=== PATIENT | female | born 1980 | race Caucasian/White ===

== ENCOUNTER 2018-08-28 18:43 | Emergency (ER) | payer SELFPAY ==
[~2018-08-28] VITALS: Ht 177.8 cm; Wt 90.7 kg
--- NOTE | 2018-08-28 18:43 | NUR ---
I0 PLACE BY EMS
--- NOTE | 2018-08-28 18:47 | NUR ---
DR CONTRERAS TO ROOM TO INTUBATE 1847 ETOMIDATE 20MG IV 1848 SUCCINYCHOLINE 100MG IV [address] CONTRERAS 7.5 23 AT TEETH WITH GOOD COLOR CHANGE. 185 FENTANYL 100MCG IV 185 PLACED IN VENT BY RT. 185 VERSED 5MG GIVEN 500MG NS GOING WIDE OPEN 185 DIPAVAN STARTED AT 40MCG HR.
[2018-08-28] MEDS ORDERED: MIDAZOLAM 5 MG/5 ML (VERSED) VIAL INJ ONE (18:48)
[2018-08-28] MEDS ORDERED: SUCCINYLCHOLINE INJ 100 MG/5 ML SYR INJ ONE (18:48)
[2018-08-28] MEDS ORDERED: ETOMIDATE IV SOLN 20 MG/10 ML VIAL IV ONE (18:48)
[2018-08-28] MEDS ORDERED: fentaNYL INJECTION 100 MCG/2 ML AMP INJ ONE (18:48)
[2018-08-28] MEDS ORDERED: PROPOFOL DRIP (ICU) 100 ML IV ONE (18:50)
--- NOTE | 2018-08-28 19:08 | NUR ---
[address] IN R SUBCLAVIAN BY MEDICAL STUDENT YOUSUF WITH ASSISTED BY DR CONTRERAS. Addendum: 08/28/18 at [address] R NECK
--- NOTE | 2018-08-28 19:16 | NUR ---
MONITOR SR HR 71 SA02 100% B/P 101/71
--- NOTE | 2018-08-28 19:18 | NUR ---
UNABLE TO OBTAIN PMH DUE TO PATIENT CONDITION FAMILY NOT HERE.
--- NOTE | 2018-08-28 19:21 | NUR ---
vent down to 31% per rt
--- NOTE | 2018-08-28 19:30 | NUR ---
CAMP PLACED BY JARED KUHN
--- NOTE | 2018-08-28 19:34 | NUR ---
PCXR DONE FOR CENTRAL LINE PLACEMENT
[2018-08-28 19:39] LABS: BILIRUBIN,URINE NEGATIVE (NEGATIVE); CLARITY,URINE SLIGHTLY CLOUDY; COLOR,URINE YELLOW; GLUCOSE, URINE (UA) NEGATIVE (NEGATIVE); KETONES,URINE NEGATIVE (NEGATIVE); LEUKOCYTE ESTERASE ,URINE NEGATIVE (NEGATIVE); NITRITE,URINE NEGATIVE (NEGATIVE); PH,URINE 6 (5-9); PROTEIN,URINE NEGATIVE (NEGATIVE); UROBILINOGEN,URINE NORMAL (NORMAL)
--- NOTE | 2018-08-28 19:42 | ED Psychosocial ---
General Chief Complaint: Overdose Stated Complaint: OD Nursing Triage Note: [facility] WAS FOUND BY UNRESPONSIVE AND MAY OF TAKEN [place] AMT OF PILLS CLONZEPAM AND SEROQUEL BOTTLE EMPTY.LAST TIME SEEN HER WAS THIS AM Source: patient, EMS Exam Limitations: clinical condition (ASYA CONTRERAS MD) Source: patient (PT IS OBTUNDED ON ARRIVAL), EMS, spouse (SUNDAY MCFADDEN DO) History of Present Illness Date Seen by Provider: Aug 28, 2018 (ASYA CONTRERAS MD) Date Seen by Provider: Aug 28, 2018 Time Seen by Provider: 18:38 Initial Comments PT ARRIVES [facility]IA [facility] FROM [place] I/O LINE IN RIGHT ANTERIOR TIBIA PLACED BY EMS PT WITH APPARENT OVERDOSE--PT WAS FOUND UNRESPONSIVE IN THE HOUSE BY HER AT 1700 TONIGHT, WITH 5 EMPTY BOTTLES OF PILLS--3 EMPTY BOTTLES OF CLONAZEPAM 0.5 MG AND 2 EMPTY BOTTLES OF SEROQUEL --ONE OF 100 MG AND ONE OF 50 MG TABLETS EMS GAVE ROMAZICON 0.5 MG WITHOUT ANY IMPROVEMENT. STATES HE LAST SAW HER BEFORE HE WENT TO WORK EARLY THIS AM STATES HE DID TALK TO HER ON THE PHONE AROUND 11:00 AM, AND THEN 'S NEPHEW WENT TO CHECK ON HER AROUND NOON AND COULD NOT GET INTO THE HOUSE, IT WAS COMPLETELY LOCKED UP, WHICH IS UNUSUAL, PER REPORTS THAT WHEN HE GOT HOME AROUND 1700, HE FOUND HER UNCONSCIOUS NO APPARENT TRAUMA REPORTS THAT PT HAS HAD 4 PSYCH ADMITS IN THE LAST 7 MONTHS--ALL AT [facility] IN [place], [place] HE REPORTS THAT SHE HAS NOT ATTEMPTED SUICIDE IN THE PAST, BUT AT LEAST ONE OF HER RECENT PSYCH ADMITS WAS FOR SUICIDAL IDEATIONS, THE OTHERS WERE REPORTEDLY FOR PT BECOMING "PSYCHOTIC--FROM THE MEDICINES THEY HAD HER ON" HE STATES THAT PT HAS HAD SEVERAL MEDICATION CHANGES RECENTLY, AND HAD BEEN TO MULTIPLE DIFFERENT PROVIDERS, AND MOST RECENTLY SWITCHED TO [facility] AND THEN [facility] STATES HE WAS UNAWARE THAT PT WAS SUICIDAL TODAY--HE STATES "SHE'S ALWAYS HAPPY ALL THE TIME" PILLS BOTTLES BROUGHT WITH PT: -CLONAZEPAM 0.5 MG #45 FILLED ON 06/22/18, WRITTEN BY JI CROCKETT--FILLED AT [facility]--BOTTLE EMPTY -CLONAZEPAM 0.5 MG #30 FILLED ON 07/27/18, WRITTEN BY LIANE REDDY--FILLED AT [facility]--BOTTLE EMPTY -CLONAZEPAM 0.5 MG #30 FILLED ON 08/17/18, WRITTEN BY BARRY--FILLED AT [facility]--BOTTLE EMPTY -QUETIAPINE/SEROQUEL 25 MG #30 FILLED ON 07/27/18, WRITTEN BY BARRY, FILLED AT [facility]--#23 LEFT IN BOTTLE -QUETIAPINE 50 MG #150 FILLED ON 07/27/18, WRITTEN BY BARRY, FILLED AT [facility]--BOTTLE EMPTY -QUETIAPINE 100 MG #45 FILLED ON 08/17/18, WRITTEN BY BARRY, FILLED AT [facility]--BOTTLE EMPTY -CITALOPRAM/CELEXA 10 MG #30 FILLED ON 07/27/18, WRITTEN BY BARRY, FILLED AT [facility]--#9 LEFT IN BOTTLE -RISPERIDONE 1 MG #20 FILLED ON 07/27/18, WRITTEN BY BARRY, FILLED AT [facility] --#8 LEFT IN BOTTLE -MIRTAZAPINE 7.5 MG #30 FILLED ON 07/27/18, WRITTEN BY BARRY, FILLED AT [facility]--#9 LEFT IN BOTTLE PT HAS NOT HAD ANY PRIOR VISITS TO THIS FACILITY. PCP: [facility], [facility] (SUNDAY MCFADDEN DO) Allergies and Home Medications Allergies Coded Allergies: No Allergy Information Available (Unverified , 08/28/18) Patient Home Medication List Home Medication List Reviewed: Yes (SUNDAY MCFADDEN DO) Review of Systems Constitutional: other (UNABLE TO OBTAIN) (SUNDAY MCFADDEN DO) Past Smtjqlz-Mqtrxx-Izrksr Hx Patient Social History Alcohol Use: Denies Use Recreational Drug Use: No Smoking Status: Unknown if Ever Smoked Recent Foreign Travel: No Contact w/Someone Who Travel: No Recent Infectious Disease Expo: No (ASYA CONTRERAS MD) Past Medical History Psychosocial: Yes (SUICIDAL IDEATIONS; PSYCHOSIS) Depression (SUNDAY MCFADDEN DO) Physical Exam Vital Signs - First Documented 08/28/18 08/28/18 18:43 20:37 Temp 91.0 Pulse 112 Resp 16 B/P (MAP) 101/74 (83) Pulse Ox 98 O2 Delivery Non Rebreather O2 Flow Rate 10.00 (SUNDAY MCFADDEN DO) Capillary Refill : Less Than 3 Seconds (ASYA CONTRERAS MD) Height, Weight, BMI Height: 5'10.00" Weight: 200lbs. oz. 90.422966jk; BMI Method:Estimated (ASYA CNOTRERAS MD) General Appearance: severe distress, obese, other (PT IS OBTUNDED ON ARRIVAL, ONLY OCCASIONA, MINIMAL MOANING WITH PAINFUL STIMULI. NO EYE OPENING OR SPONTANEOUS MOVEMENTS. NO GROSS EXTERNAL EVIDENCE OF TRAUMA. ) Respiratory: other (RESPIRATIONS SOMEWHAT SHALLOW) Cardiovascular: regular rate, rhythm Gastrointestinal: soft Extremities: no pedal edema Neurologic/Psychiatric: other (OBTUNDED--GCS OF 6 OR LESS--NO EYE OPENING, ONLY OCCASIONALLY MOANS A LITTLE, NO ACTUAL MOTOR MOVEMENTS TO PAIN BUT MOANS WITH PAIN. ) Skin: pallor (SUNDAY MCFADDEN DO) Procedures/Interventions Lumen: triple Central Line Procedure: betadine prep, sterile drapes applied, sterile dressing applied Position: internal jugular (R) Anesthesia: Lidocaine Volume Anesthetic (ccs): 3 Complications: none Post Position: sutured, good blood return, position confirmed w/ CXR Central line placed an emergent condition for need for medication administration frequent blood draw. Patient unresponsive due to overdose. Place via ultrasound guidance to the right IJ times one stick with no complications. Good flash and flush. Post chest x-ray shows line in good position (ASYA CONTRERAS MD) Date of ETT Placement: Aug 28, 2018 Time of ETT Placement: 1856 Tube Size: 7.50 Medications: Etomidate, Succinylcholine Positive End Tide CO2: Yes Breath Sounds after Intubation: bilateral-equal Intubation Complications: no complications Post Intubation Xray: Yes tube in good position Placed on vent without difficulty. (ASYA CONTRERAS MD) Progress/Results/Core Measures Results/Orders Lab Results Laboratory Tests Test 08/28/18 18:51 08/28/18 19:22 08/28/18 19:57 Range/Units Blood Gas Puncture Site RIGHT RADIAL Blood Gas Patient Temperature 91.6 Arterial Blood pH 7.44 H 7.37-7.43 Arterial Blood Partial Pressure CO2 32 L 35-45 MMHG Arterial Blood Partial Pressure O2 80 79-93 MMHG Arterial Blood HCO3 23 23-27 MMOL/L Arterial Blood Total CO2 24.2 21.0-31.0 MMOL/L Arterial Blood Oxygen Saturation 99 94-100 % Arterial Blood Base Excess -1.3 -2.5-2.5 MMOL/L Reid Test POSITIVE Blood Gas Ventilator Setting YES Blood Gas Inspired Oxygen 35% Urine Color YELLOW Urine Clarity SLIGHTLY CLOUDY Urine pH 6 5-9 Urine Specific [place] 1.010 L 1.016-1.022 Urine Protein NEGATIVE NEGATIVE Urine Glucose (UA) NEGATIVE NEGATIVE Urine Ketones NEGATIVE NEGATIVE Urine Nitrite NEGATIVE NEGATIVE Urine Bilirubin NEGATIVE NEGATIVE Urine Urobilinogen NORMAL NORMAL MG/DL Urine Leukocyte Esterase NEGATIVE NEGATIVE Urine RBC (Auto) 3+ H NEGATIVE Urine RBC 10-25 H /HPF Urine WBC RARE /HPF Urine Squamous Epithelial Cells 5-10 /HPF Urine Crystals NONE /LPF Urine Bacteria NEGATIVE /HPF Urine Casts NONE /LPF Urine Mucus NEGATIVE /LPF Urine Culture Indicated NO Urine Opiates Screen NEGATIVE NEGATIVE Urine Oxycodone Screen NEGATIVE NEGATIVE Urine Methadone Screen NEGATIVE NEGATIVE Urine Propoxyphene Screen NEGATIVE NEGATIVE Urine Barbiturates Screen NEGATIVE NEGATIVE Ur Tricyclic Antidepressants Screen POSITIVE H NEGATIVE Urine Phencyclidine Screen NEGATIVE NEGATIVE Urine Amphetamines Screen NEGATIVE NEGATIVE Urine Methamphetamines Screen NEGATIVE NEGATIVE Urine Benzodiazepines Screen NEGATIVE NEGATIVE Urine Cocaine Screen NEGATIVE NEGATIVE Urine Cannabinoids Screen NEGATIVE NEGATIVE White Blood Count 6.6 4.3-11.0 10^3/uL Red Blood Count 3.88 L 4.35-5.85 10^6/uL Hemoglobin 12.2 11.5-16.0 G/DL Hematocrit 35 35-52 % Mean Corpuscular Volume 91 80-99 FL Mean Corpuscular Hemoglobin 31 25-34 PG Mean Corpuscular Hemoglobin Concent 35 32-36 G/DL Red Cell Distribution Width 14.2 10.0-14.5 % Platelet Count 201 130-400 10^3/uL Mean Platelet Volume 10.0 7.4-10.4 FL Neutrophils (%) (Auto) 69 42-75 % Lymphocytes (%) (Auto) 23 12-44 % Monocytes (%) (Auto) 6 0-12 % Eosinophils (%) (Auto) 2 0-10 % Basophils (%) (Auto) 1 0-10 % Neutrophils # (Auto) 4.5 1.8-7.8 X 10^3 Lymphocytes # (Auto) 1.5 1.0-4.0 X 10^3 Monocytes # (Auto) 0.4 0.0-1.0 X 10^3 Eosinophils # (Auto) 0.2 0.0-0.3 10^3/uL Basophils # (Auto) 0.0 0.0-0.1 10^3/uL Prothrombin Time 14.1 12.2-14.7 SEC INR Comment 1.1 0.8-1.4 Activated Partial Thromboplast Time 31 24-35 SEC Sodium Level 139 135-145 MMOL/L Potassium Level 3.2 L 3.6-5.0 MMOL/L Chloride Level 109 H 98-107 MMOL/L Carbon Dioxide Level 20 L 21-32 MMOL/L Anion Gap 10 5-14 MMOL/L Blood Urea Nitrogen 8 7-18 MG/DL Creatinine 0.72 0.60-1.30 MG/DL Estimat Glomerular Filtration Rate > 60 BUN/Creatinine Ratio 11 Glucose Level 94 70-105 MG/DL Calcium Level 8.1 L 8.5-10.1 MG/DL Corrected Calcium 8.6 8.5-10.1 MG/DL Magnesium Level 2.1 1.8-2.4 MG/DL Total Bilirubin 0.7 0.1-1.0 MG/DL Aspartate Amino Transf (AST/SGOT) 14 5-34 U/L Alanine Aminotransferase (ALT/SGPT) 11 0-55 U/L Alkaline Phosphatase 87 40-136 U/L Total Creatine Kinase 58 29-168 U/L Creatine Kinase MB 1.1 <6.6 NG/ML Troponin I < 0.028 <0.028 NG/ML B-Type Natriuretic Peptide < 10.0 <100.0 PG/ML Total Protein 5.7 L 6.4-8.2 GM/DL Albumin 3.4 3.2-4.5 GM/DL Amylase Level 41 25-125 U/L TSH [place] Testing 2.92 0.35-4.94 UIU/ML Serum Test, Qualitative NEGATIVE NEGATIVE Acetaminophen Level < 10 L 10-30 UG/ML Serum Alcohol < 10 <10 MG/DL (TOSHIA,SUNDAY K DO) My Orders Orders - TOSHIA,SUNDAY K DO Saline Lock/Iv-Start (08/28/18 18:51) Ekg Tracing (08/28/18 18:51) Catheter(Urinary) Insert & Ass 03,15 (08/28/18 18:51) Ng Tube Insert & Assessment (08/28/18 18:51) O2 (08/28/18 18:51) Monitor-Rhythm Ecg Trace Only (08/28/18 18:51) Acetaminophen (08/28/18 18:51) Alcohol (08/28/18 18:51) Amylase (08/28/18 18:51) Arterial Blood Gas (08/28/18 18:51) BNP (08/28/18 18:51) Cbc With Automated Diff (08/28/18 18:51) Comprehensive Metabolic Panel (08/28/18 18:51) Creatine Kinase (08/28/18 18:51) Creatine Kinase Mb (08/28/18 18:51) Drug Screen Stat (Urine) (08/28/18 18:51) Hcg,Qualitative Serum (08/28/18 18:51) Magnesium (08/28/18 18:51) Protime With Inr (08/28/18 18:51) Partial Thromboplastin Time (08/28/18 18:51) Thyroid Analyzer (08/28/18 18:51) Troponin I (08/28/18 18:51) Ua Culture If Indicated (08/28/18 18:51) Chest 1 View, Ap/Pa Only (08/28/18 18:51) Propofol Drip (Icu) (Diprivan Drip (Icu) (08/28/18 18:50) (SUNDAY MCFADEDN DO) Medications Given in ED Current Medications Medications Dose Ordered Sig/Thi Route Start Time Stop Time Status Last Admin Dose Admin Propofol 100 ml @ ud STK-MED ONCE IV 08/28/18 18:50 08/28/18 18:56 DC 08/28/18 20:37 20.9 MLS/HR (SUNDAY MCFADDEN DO) Vital Signs/I&O 08/28/18 08/28/18 08/28/18 18:43 20:37 21:01 Temp 91.0 91.0 Pulse 112 59 58 Resp 16 14 14 B/P (MAP) 101/74 (83) 109/77 112/72 (85) Pulse Ox 98 100 100 O2 Delivery Non Rebreather O2 Flow Rate 10.00 10.00 (SUNDAY MCFADDEN DO) Blood Pressure Mean: 83 Progress Progress Note : Progress Note Assisted in management of the patient on arrival. Patient obtunded with large overdose. Need for airway protection due to inability to protect her own airway and concern of worsening due to overdose. Intubated without difficulty and placed on vent at settings of tidal volume 450 with rate of 14 and PEEP of 5. Initial O2 set at 50 percent and titrated down with good maintenance of O2 saturations. Central line placed under emergent conditions due to need for medications and frequent blood draws. Patient obtunded. Central line placed without difficulty. OG-tube and Olvera catheter also placed by nursing and post intubation/line placement x-ray shows tubes in good position. Care assumed by Dr. Mcfadden. (ASYA CONTRERAS MD) Progress Note : Progress Note NO DETERIORATION IN PT'S CONDITION DURING ER STAY--VITALS REMAINED STABLE, ALTHOUGH PT'S RECTAL TEMP REMAINED 91 DEGREES DESPITE WARM BLANKETS AND WARM IV FLUIDS. EMS ARRIVED BEFORE ROSAMARIA HUGGER COULD BE APPLIED. PT DID NOT REQUIRE ANY ADDITIONAL SEDATION AFTER INITIAL MEDICATIONS WERE GIVEN AT TIME OF INTUBATION. PT WAS PLACED ON DIPRIVAN DRIP BY DR CONTRERAS AFTER INTUBATION. (SUNDAY MCFADDEN DO) Initial ECG Impression Date: Aug 28, 2018 Initial ECG Impression Time: 19:46 Initial ECG Rate: 64 Initial ECG Rhythm: Normal Sinus Initial ECG Impression: Normal Initial ECG Comparisson: No Previous ECG Available (SUNDAY MCFADDEN DO) Diagnostic Imaging Comments CXR--NO ACUTE PROCESS, LINES AND TUBES IN ADEQUATE POSITIONS, PER RADIOLOGIST REPORT @ 2023 Reviewed: Reviewed by Me (SUNDAY MCFADDEN DO) Critical Care Note Critical Care Total Time (minutes) 60 (SUNDAY MCFADDEN DO) Departure Communication (Admissions) Family Conversation DISCUSSED PT'S CURRENT GRAVE SITUATION, AND NEED FOR TRANSFER TO ANOTHER FACILITY, WE ARE CURRENTLY ON DIVERSION. HE IS AGREEABLE TO CURRENT TREATMENT AND PLAN OF CARE. THERE ARE NO BEDS CURRENTLY AVAILABLE HERE--HOSPITAL IS ON DIVERSION FOR ADMISSIONS 1934--SPOKE WITH [facility] ( 'S PREFERENCE ) 1941--SPOKE WITH DR. JOSEPH, [facility], ACCEPTS PT FOR ADMIT. NO ADDITIONAL RECOMMENDATIONS GIVEN AT THIS TIME. . (SUNDAY MCFADDEN DO) Impression Primary Impression: Intentional overdose of drug in tablet form Additional Impressions: Obtunded Poor venous access Hypothermia Disposition: 02 XFER SHT-TRM HOSP Condition: Stable/Unchanged (BUT SERIOUS) Transfer Transfer Facility: [facility] Method of Transfer: EMS ([facility]) (SUNDAY MCFADDEN DO) ASYA CONTRERAS MD Aug 28, 2018 19:42 SUNDAY MCFADDEN DO Aug 29, 2018 03:34
[2018-08-28 19:47] LABS: WBC,URINE RARE /HPF
[2018-08-28 19:48] LABS: BACTERIA,URINE NEGATIVE /HPF
[2018-08-28 19:53] LABS: AMPHETAMINE SCREEN, URINE NEGATIVE (NEGATIVE); BARBITURATE SCREEN URINE NEGATIVE (NEGATIVE); BENZODIAZEPINES SCREEN URINE NEGATIVE (NEGATIVE); CANNABINOID SCREEN, URINE NEGATIVE (NEGATIVE); COCAINE SCREEN URINE NEGATIVE (NEGATIVE); METHADONE STAT NEGATIVE (NEGATIVE); METHAMPHETAMINE SCREEN URINE S NEGATIVE (NEGATIVE); OPIATE SCREEN URINE NEGATIVE (NEGATIVE); OXYCODONE STAT NEGATIVE (NEGATIVE); PROPOXYPHENE STAT NEGATIVE (NEGATIVE); TRICYCLIC ANTIDEPRESSANTS SCRE POSITIVE (NEGATIVE)
[2018-08-28 19:59] LABS: ABG BASE EXCESS -1.3 MMOL/L (-2.5-2.5); ABG OXYGEN SATURATION 99 % (94-100); ABG PCO2 32 MMHG (35-45); ABG PH 7.44 (7.37-7.43); ABG PO2 80 MMHG (79-93); ABG TCO2 24.2 MMOL/L (21.0-31.0)
--- NOTE | 2018-08-28 19:59 | NUR ---
LAB DRAW FROM CENTRAL LINE
--- NOTE | 2018-08-28 19:59 | NUR ---
REPORT TPO MONA KUHN
--- NOTE | 2018-08-28 20:01 | Diagnostic Imaging Report ---
INDICATION: Intubation and line placement. Time of exam: 7:34 PM Heart size is normal. ET tube has tip in good position above the heather. NG tube passes below the diaphragm. Right IJ line has tip overlying the SVC right atrial junction. The lungs are clear. There is no pneumothorax. IMPRESSION: Lines and catheters, as described. Dictated by: Dictated on workstation # [id number]
[2018-08-28 20:03] LABS: ALLENS TEST POSITIVE; INSPIRED O2 35%; PATIENT TEMP 91.6; VENTILATOR YES
[2018-08-28 20:06] LABS: BASOPHILS % (AUTO) 1 % (0-10); EOSINOPHILS # (AUTO) 0.2 10^3/uL (0.0-0.3); EOSINOPHILS % (AUTO) 2 % (0-10); HEMATOCRIT 35 % (35-52); HEMOGLOBIN 12.2 G/DL (11.5-16.0); LYMPHOCYTES # (AUTO) 1.5 X 10^3 (1.0-4.0); LYMPHOCYTES % (AUTO) 23 % (12-44); MEAN CORPUSCULAR HEMOGLOBIN 31 PG (25-34); MEAN CORPUSCULAR HGB CONC 35 G/DL (32-36); MEAN CORPUSCULAR VOLUME 91 FL (80-99); MONOCYTES # (AUTO) 0.4 X 10^3 (0.0-1.0); MONOCYTES % (AUTO) 6 % (0-12); NEUTROPHILS # (AUTO) 4.5 X 10^3 (1.8-7.8); NEUTROPHILS % (AUTO) 69 % (42-75); PLATELET COUNT 201 10^3/uL (130-400); RED CELL DISTRIBUTION WIDTH 14.2 % (10.0-14.5); WHITE BLOOD COUNT 6.6 10^3/uL (4.3-11.0)
[2018-08-28 20:16] LABS: INR 1.1 (0.8-1.4); PROTHROMBIN TIME PATIENT 14.1 SEC (12.2-14.7)
[2018-08-28 20:30] LABS: ALANINE AMINOTRANSFERASE 11 U/L (0-55); ALKALINE PHOSPHATASE 87 U/L (40-136); AMYLASE 41 U/L (25-125); BILIRUBIN,TOTAL 0.7 MG/DL (0.1-1.0); BUN/CREATININE RATIO 11; CALCIUM 8.1 MG/DL (8.5-10.1); CARBON DIOXIDE 20 MMOL/L (21-32); CHLORIDE 109 MMOL/L (98-107); CREATINE KINASE 58 U/L (29-168); CREATININE SERUM 0.72 MG/DL (0.60-1.30); GFR ESTIMATED > 60; GLUCOSE 94 MG/DL (70-105); MAGNESIUM 2.1 MG/DL (1.8-2.4); POTASSIUM 3.2 MMOL/L (3.6-5.0); SODIUM 139 MMOL/L (135-145); TOTAL PROTEIN 5.7 GM/DL (6.4-8.2)
[2018-08-28 20:31] LABS: ACETAMINOPHEN < 10 UG/ML (10-30)
[2018-08-28 20:51] LABS: CREATINE KINASE MB 1.1 NG/ML (<6.6); TSH (THYROID ANALYZER) 2.92 UIU/ML (0.35-4.94)
[2018-08-28 21:01] VITALS: BP 112/72
[2018-08-28 21:09] LABS: ALBUMIN 3.4 GM/DL (3.2-4.5)
== END 2018-08-28 21:01 | disposition short-term general hospital (02) ==
LOC: ER 18:47
DX: T42.2X2A Poisoning by succinimides and oxazolidinediones, intentional self-harm, initial encounter (principal); T43.592A Poisoning by other antipsychotics and neuroleptics, intentional self-harm, initial encounter; T68.XXXA Hypothermia, initial encounter; F32.9 Major depressive disorder, single episode, unspecified
CPT/HCPCS: 31500; 36415; 36600; 51702; 71045; 80053; 80306; 80320; 80329; 81000; 82150; 82550; 82553; 82805; 83735; 83880; 84443; 84484; 84703; 85025; 85610; 85730; 93005; 93041; 99291

== ENCOUNTER 2018-12-30 01:13 | Emergency (ER) | payer SELFPAY ==
[~2018-12-30] VITALS: Ht 160 cm; Wt 77.1 kg
[2018-12-30 01:35] LABS: HCG,QUALITATIVE URINE NEGATIVE (NEGATIVE)
[2018-12-30 01:41] LABS: BACTERIA,URINE NEGATIVE /HPF; BILIRUBIN,URINE NEGATIVE (NEGATIVE); CLARITY,URINE CLEAR; COLOR,URINE PALE YELLOW; GLUCOSE, URINE (UA) NEGATIVE (NEGATIVE); KETONES,URINE NEGATIVE (NEGATIVE); LEUKOCYTE ESTERASE ,URINE 2+ (NEGATIVE); NITRITE,URINE NEGATIVE (NEGATIVE); PROTEIN,URINE NEGATIVE (NEGATIVE); SQUAMOUS EPITHELIAL CELL,UR 0-2 /HPF; UROBILINOGEN,URINE 0.2 MG/DL (NORMAL)
--- NOTE | 2018-12-30 01:42 | ED GU-Female ---
General Chief Complaint: - Urinary Stated Complaint: BURNING ON URINATION Source: patient History of Present Illness Date Seen by Provider: Dec 30, 2018 Time Seen by Provider: 01:14 Initial Comments 38 yo F presenting to ED with complaints of painful urination since the afternoon. she reports seeing some blood with urination as well. She has a hx of frequent Urinary tract infections as well. She has been drinking a lot of water and cranberry juice to try and flush out her bladder and see if she could clear the infection on her own at home. she was still having pain and burning with urgency and feeling like she can not empty her bladder so she came to the ED tonight. She has no fever or chills. No pain over kidneys. No n/v and no fever or chills. no vaginal bleeding or discharge. Last menstrual period finished last week and was normal for her. she denies having a primary provider to follow up with currently. Allergies and Home Medications Allergies Coded Allergies: No Allergy Information Available (Unverified , 08/28/18) Home Medications Sulfamethoxazole/Trimethoprim 1 Each Tablet, 1 EACH PO BID Prescribed by: TIFFANY HOLM on 12/30/18 0208 Patient Home Medication List Home Medication List Reviewed: Yes Review of Systems Review of Systems Constitutional: No chills, No fever EENTM: no symptoms reported Respiratory: no symptoms reported Gastrointestinal: No nausea, No vomiting Genitourinary: see HPI Musculoskeletal: no symptoms reported Skin: no symptoms reported Psychiatric/Neurological: No Symptoms Reported Past Tcrortz-Xkndxa-Abibjr Hx Past Med/Social Hx: Reviewed Nursing Past Med/Soc Hx Patient Social History Recent Foreign Travel: No Contact w/Someone Who Travel: No Past Medical History Psychosocial: Yes (SUICIDAL IDEATIONS; PSYCHOSIS) Depression Physical Exam Vital Signs Vital Signs - First Documented 12/30/18 01:21 Temp 98.5 Pulse 76 Resp 16 B/P (MAP) 111/63 (79) Pulse Ox 96 O2 Delivery Room Air Capillary Refill : Height, Weight, BMI Height: 5'10.00" Weight: 200lbs. oz. 90.923304vf; BMI Method:Estimated General Appearance: WD/WN, no apparent distress Cardiovascular: normal peripheral pulses, regular rate, rhythm Respiratory: chest non-tender, lungs clear, normal breath sounds Gastrointestinal: normal bowel sounds, non tender, soft Back: normal inspection, no CVA tenderness, no vertebral tenderness Extremities: normal range of motion, non-tender, normal inspection Neurologic/Psychiatric: alert, normal mood/affect, oriented x 3 Skin: normal color, warm/dry Procedures/Interventions Date of ETT Placement: Aug 28, 2018 Time of ETT Placement: 1856 Progress/Results/Core Measures Suspected Sepsis SIRS Temperature: Pulse: Respiratory Rate: Blood Pressure / Mean: Results/Orders Lab Results Laboratory Tests Test 12/30/18 01:23 Range/Units Urine Color PALE YELLOW Urine Clarity CLEAR Urine pH 6.0 5-9 Urine Specific [place] <=1.005 1.016-1.022 Urine Protein NEGATIVE NEGATIVE Urine Glucose (UA) NEGATIVE NEGATIVE Urine Ketones NEGATIVE NEGATIVE Urine Nitrite NEGATIVE NEGATIVE Urine Bilirubin NEGATIVE NEGATIVE Urine Urobilinogen 0.2 NORMAL MG/DL Urine Leukocyte Esterase 2+ H NEGATIVE Urine RBC (Auto) 2+ H NEGATIVE Urine RBC NONE /HPF Urine WBC 10-25 H /HPF Urine Squamous Epithelial Cells 0-2 /HPF Urine Crystals NONE /LPF Urine Bacteria NEGATIVE /HPF Urine Casts NONE /LPF Urine Mucus NONE /LPF Urine Culture Indicated YES Urine Test NEGATIVE NEGATIVE My Orders Orders - TIFFANY HOLM MD Ua Culture If Indicated (12/30/18 01:22) Hcg,Qualitative Urine (12/30/18 01:22) Urine Culture (12/30/18 01:23) Phenazopyridine Tablet (Pyridium Tablet) (12/30/18 02:04) Sulfamethoxazole/Trimet Ds Tab (Bactrim (12/30/18 02:04) Vital Signs/I&O 12/30/18 12/30/18 01:21 02:10 Temp 98.5 98.5 Pulse 76 76 Resp 16 16 B/P (MAP) 111/63 (79) 111/63 (79) Pulse Ox 96 96 O2 Delivery Room Air Room Air Capillary Refill : Progress Note #1: Progress Note check UA and UCG. Based on her symptoms will plan on treating her for a UTI and have her check with clinic for continued symptoms Progress Note #2: Time: 01:54 Progress Note UA shows LE and WBC consistent with UTI. will treat with bactrim DS and pyridium here and discharge on Bactrim DS and OTC AZO as well as continue to push fluids at home Departure Impression Primary Impression: Acute cystitis without hematuria Disposition: 01 HOME, SELF-CARE Condition: Stable Departure-Patient Inst. Decision time for Depature: 02:04 Referrals: NO,LOCAL PHYSICIAN (PCP/Family) Primary Care Physician Patient Instructions: Urinary Tract Infection, Adult (DC) Add. Discharge Instructions: Take all the antibiotics until gone. Follow up with clinic for continued concerns Stay well hydrated All discharge instructions reviewed with patient and/or family. Voiced understanding. Scripts Sulfamethoxazole/Trimethoprim (Bactrim Ds Tablet) 1 Each Tablet 1 EACH PO BID for UTI for 7 Days, #14 TAB 0 Refills Prov: TIFFANY HOLM MD 12/30/18 TIFFANY HOLM MD Dec 30, 2018 01:42
[2018-12-30] MEDS ORDERED: TRIM/SULFAMETH 160/800 (SEPTRA DS) TAB PO STA (02:04)
[2018-12-30] MEDS ORDERED: PHENAZOPYRIDINE 100 MG (PYRIDIUM) TABLET PO STA (02:04)
[2018-12-30] MEDS ORDERED: SULF1TAB35 PO (02:08)
[2018-12-30 02:10] VITALS: BP 111/63
== END 2018-12-30 02:13 | disposition home or self-care (01) ==
LOC: EDUNIT# 01:13 → ER FS 01:16
DX: N30.00 Acute cystitis without hematuria (principal); F32.9 Major depressive disorder, single episode, unspecified
CPT/HCPCS: 81000; 84703; 87077; 87088; 87186; 99283

== ENCOUNTER 2019-08-11 10:55 | Emergency (ER) | payer SELFPAY ==
[~2019-08-11] VITALS: Ht 160 cm; Wt 73.8 kg
[~2019-08-11 10:55] MED LIST: SULF1TAB35 PO
[2019-08-11] MEDS ORDERED: KETOROLAC 60 MG/2 ML VIAL IM ONE (11:15)
--- NOTE | 2019-08-11 11:22 | ED EENT ---
History of Present Illness General Chief Complaint: Dental Problems/Pain Stated Complaint: DENTAL PAIN Nursing Triage Note: Patient reports left lower dental pain for 2 days, states she was seen at walk-in care yesterday, received toradol injection and prescription for amoxicillin (has had 3 doses). She states she has been taking 1200 mg of ibprofen for pain, last dose at 0600 this morning, states this has not relieved her pain. She reports the pain and swelling in her left lower jaw are worsening instead of improving. Source: patient, family (spend) Exam Limitations: no limitations, clinical condition (with left-sided facial swelling and discomfort secondary to dental abscess mandibular molar) History of Present Illness Date Seen by Provider: Aug 11, 2019 Time Seen by Provider: 11:07 Initial Comments 38-year-old female presents to the emergency room for a left mandibular dental abscess. Patient was seen 3 days earlier in the [facility] and treated with Augmentin 875 twice a day and a Toradol injection. She reports the pain was improved yesterday but now the pain and swelling has gotten worse. She is taking her Augmentin. She has given informed consent for a second Toradol injection understands she needs to drink at least 3 quarts of water today. She denies any history of renal disease also denies any history of cardiovascular pulmonary or GI disease. She is taking ibuprofen but does not have adequate pain relief. Examination shows abscessed tooth on the left mandibular ridge patient has given informed consent for diagnostic and therapeutic services including Toradol injection and ongoing treatment with tramadol oral medications. She has used tramadol in the past without complications she denies any substance use disorder. Patient will follow-up with [facility] dental services but was told that she has to wait for up to 6 weeks and needs to call every weekday to see if there is an opening. Patient is aware that even if the tooth improves she still needs to have the dentist evaluation and treatment. This consultation utilizes [employer] software. Efforts have been made to review and make all corrections. Some corrections penetrates the review process. This is not an intentional event. There is any questions regarding this dictation please contact Bobby Arguello DO Timing/Duration: gradual, last week (and now has severe pain in her left jaw) Severity: moderate Location: dental Prearrival Treatment: prescription meds (Augmentin and ibuprofen) Modifying Factors: Improves With Activity, Improves With Other (any touching or irritation of the gums or tooth) Associated Symptoms: tooth pain Allergies and Home Medications Allergies Coded Allergies: lithium (Verified Allergy, Unknown, 08/11/19) Home Medications Sulfamethoxazole/Trimethoprim 1 Each Tablet, 1 EACH PO BID Prescribed by: TIFFANY HOLM on 12/30/18 0208 Patient Home Medication List Home Medication List Reviewed: Yes Review of Systems Review of Systems Constitutional: malaise, other (toothache) Eyes: No Symptoms Reported Ears: No Symptoms Reported Nose: no symptoms reported Mouth: pain (left mandible) Throat: pain, swelling (left mandible swelling) Respiratory: no symptoms reported Cardiovascular: no symptoms reported Gastrointestinal: no symptoms reported : No Musculoskeletal: neck pain (left side near the angle of the mandible) Skin: change in color (mild erythema on the left mandible) Neurological: Anxiety (from pain) Hematologic/Lymphatic: No Symptoms Reported Immunological/Allergic: no symptoms reported Past Xshyhjh-Wblabj-Snicgi Hx Patient Social History Alcohol Use: Denies Use Recreational Drug Use: No Smoking Status: Current Everyday Smoker Type Used: Cigarettes 2nd Hand Smoke Exposure: Yes Recent Foreign Travel: No Contact w/Someone Who Travel: No Recent Infectious Disease Expo: No Recent Hopitalizations: No Physical Abuse: No Sexual Abuse: No Mistreated: No Fear: No Seasonal Allergies Seasonal Allergies: No Past Medical History Surgeries: Yes Bladder Surgery, Gallbladder Respiratory: No Cardiac: No Neurological: No Genitourinary: No Gastrointestinal: No Musculoskeletal: No Endocrine: No HEENT: No Cancer: No Psychosocial: Yes Bipolar Integumentary: No Family Medical History Reviewed Nursing Family Hx Physical Exam Vital Signs Vital Signs - First Documented 08/11/19 11:00 Temp 37.3 Pulse 77 Resp 16 B/P (MAP) 101/49 (66) Pulse Ox 95 O2 Delivery Room Air Height, Weight, BMI Height: 5'3.00" Weight: 170lbs. oz. 77.826193wa; 28.00 BMI Method:Stated General Appearance: moderate distress (left mandible pain secondary to dental abscess) Eyes: bilateral eye normal inspection, bilateral eye PERRL, bilateral eye EOMI Ears: bilateral ear auricle normal, bilateral ear canal normal Nose: normal inspection Mouth/Throat: dental tenderness, mandibular swelling (left side), other (left mandibular molar with gingival irritation and open pulp) Neck: supple, normal inspection, other (little tenderness in the left angle of the jaw into the left neck no posterior neck or right neck component) Cardiovascular: regular rate, rhythm, no edema, no gallop, no JVD, no murmur Respiratory: chest non-tender, lungs clear, normal breath sounds, no r espiratory distress, no accessory muscle use Gastrointestinal: normal bowel sounds, non tender, soft, no organomegaly, no pulsatile mass Neurologic/Psychiatric: gas tester II-XII nml as tested, no motor/sensory deficits, alert, normal mood/affect, oriented x 3 Skin: normal color, warm/dry Procedures/Interventions Date of ETT Placement: Aug 28, 2018 Time of ETT Placement: 1856 Progress/Results/Core Measures Results/Orders My Orders Orders - BOBBY ARGUELLO DO Ketorolac Injection (Toradol Injection) (08/11/19 11:15) Vital Signs/I&O 08/11/19 11:00 Temp 37.3 Pulse 77 Resp 16 B/P (MAP) 101/49 (66) Pulse Ox 95 O2 Delivery Room Air Blood Pressure Mean: 66 Departure Impression Primary Impression: Dental abscess Disposition: 01 HOME, SELF-CARE Condition: Stable Departure-Patient Inst. Decision time for Depature: 11:29 Referrals: NO,LOCAL PHYSICIAN (PCP) Primary Care Physician Patient Instructions: Dental Pain (DC), Tooth Abscess (DC), Tooth Decay, Adult (DC) Add. Discharge Instructions: 38-year-old female with left mandibular molar abscess currently on Augmentin and will continue on this antibiotic in addition to tramadol. Patient did receive Toradol 60 mg injection in the emergency room she'll also continue on ibuprofen for pain. Patient understands that she needs to push fluids drinking a minimum of 3 quarts per day. The patient is also aware of the critical need for dental follow-up and she will continue to call the [facility] every day to try to have this tooth pulled. All discharge instructions reviewed with patient and/or family. Voiced understanding. Scripts Tramadol HCl (Tramadol HCl) 50 Mg Tablet 50 MG PO Q6H PRN for PAIN-MODERATE (5-7) for 5 Days, #20 TAB 0 Refills Prov: BOBBY ARGUELLO DO 08/11/19 BOBBY ARGUELLO DO Aug 11, 2019 11:22
[2019-08-11] MEDS ORDERED: TRM50T PO (11:32)
[2019-08-11 11:38] VITALS: BP 101/49
== END 2019-08-11 11:35 | disposition home or self-care (01) ==
LOC: EDUNIT# 10:55 → ER FS 10:57
DX: K04.7 Periapical abscess without sinus (principal); F17.210 Nicotine dependence, cigarettes, uncomplicated; Z88.8 Allergy status to other drugs, medicaments and biological substances
CPT/HCPCS: 99284